=== PATIENT | male | born 1955 | race Two or more races ===

== ENCOUNTER 2025-04-06 06:45 | Day surgery (SDC) | payer MEDICARE, SELFPAY ==
[2025-04-06] VITALS (9 sets, daily range): BP systolic 106–170; BP diastolic 64–95; PULSE 55–81; RESP 11–20; TEMP 36.3–36.7; O2SAT 95–100; BMI 29.6
[2025-04-06] MEDS: SODIUM CHLORIDE 0.9% 500 ML 500 ML 100 ML IV (07:25)
[2025-04-06] MEDS: MIDAZOLAM INJ 1 MG/ML VIAL 2 ML (ASD USE ONLY) 2 MG IVP (07:27)
[2025-04-06] MEDS: fentaNYL CIT INJ 50 mCg/ML AMP 2ML (ASD USE ONLY) IVP (07:27)
== END 2025-04-06 08:10 | disposition home or self-care (01) ==
PROVIDERS: PCP Internal Medicine; Referring Provider Surgery; Visit Provider Surgery
PROC: 0DBE8ZX Excision of Large Intestine, Via Natural or Artificial Opening Endoscopic, Diagnostic (ICD-10-PCS; CPT 45380; principal; 2025-04-06 07:30)
DX: K64.1 Second degree hemorrhoids (principal); K57.31 Diverticulosis of large intestine without perforation or abscess with bleeding
CPT/HCPCS: 45378; J1200; J2250; J3010; J7999

== ENCOUNTER → 2025-09-09 | Outpatient (CLI) | payer MEDICARE, SELFPAY ==
--- NOTE | 2025-09-09 11:49 | XR_ITS ---
EXAMINATION: Ankle, left 3 views. Technique: Ankle AP, oblique, lateral 3 views Date and time of exam: September 09, 2025, 1247 hours INDICATIONS: Injury to the ankle 1978 with chronic ankle pain worse the last 2 weeks. FINDINGS: No fracture or dislocation Early osteoarthritis tibiotalar joint 4 mm plantar bony calcaneal spur IMPRESSION: Early osteoarthritis tibiotalar joint
--- NOTE | 2025-09-09 11:49 | XR_ITS ---
EXAMINATION: Left knee 4 views TECHNIQUE: AP oblique lateral axial left knee 4 views Date and time: September 09, 2025, 1251 hours INDICATIONS: Left knee injury 1978 followed by knee pain worse the last 2 weeks FINDINGS: No fracture or dislocation. No significant joint narrowing No patellar dislocation in particular IMPRESSION: No fracture or significant arthritic change
== END | disposition home or self-care (01) ==
PROVIDERS: PCP Internal Medicine; Referring Provider Internal Medicine; Visit Provider Internal Medicine
DX: M25.572 Pain in left ankle and joints of left foot (principal); M19.072 Primary osteoarthritis, left ankle and foot; S99.912S Unspecified injury of left ankle, sequela; S89.92XS Unspecified injury of left lower leg, sequela; X58.XXXS Exposure to other specified factors, sequela
CPT/HCPCS: 73564; 73610